=== PATIENT | female | born 1970 | race African-American/Black ===

== ENCOUNTER 2017-09-27 19:34 | Emergency (ER) | payer MEDICAID ==
[~2017-09-27] VITALS: Ht 167.6 cm; Wt 102.1 kg
--- NOTE | 2017-09-27 19:40 | NUR ---
TO MELIZA A/W RAFFI OSBORNE NOTED, PATIENT SMELLS OF FECES AND URINE.
[2017-09-27 19:44] VITALS: BP 160/82
--- NOTE | 2017-09-27 20:08 | NUR ---
BIB WHEELCHAIR TO ER BED 1
--- NOTE | 2017-09-27 20:10 | NUR ---
47/F BIBA W C/O LEFT LEG EDEMA AND PAIN. PT STATES SHE CANNOT WALK/BEAR WEIGHT ON LEG. PT IS TRANSIENT AND NORMALLY ON WHEELCHAIR. LEFT LEG NOTED EDEMATOUS WITH ERYTHEMA, SCALING DENIES SOB/CP, DENIES FEVER/CHILLS, N/V. PMH: HTN, DM
[2017-09-27] MEDS ORDERED: TRAM50TA1 PO (21:53)
[2017-09-27] MEDS ORDERED: ALBU0.0912 IH (21:53)
[2017-09-27 22:17] LABS: BASOPHILS # (AUTO) 0.3 K/uL (0.00-0.22); EOSINOPHILS # (AUTO) 0.1 K/uL (0-0.4); HEMATOCRIT 34.4 % (36-48); HEMOGLOBIN 10.6 g/dL (12.0-16.0); MEAN CORPUSCULAR HEMOGLOBIN 27 pg (27-31); MEAN CORPUSCULAR HGB CONC 31 g/dL (33-37); MEAN CORPUSCULAR VOLUME 88 fL (80-94); MONOCYTES # (AUTO) 0.4 K/uL (0.8-1.0); NEUTROPHILS # (AUTO) 1.4 K/uL (1.8-7.7); PLATELET COUNT (AUTO) 541 K/uL (140-450); RED BLOOD CELL COUNT(AUTO) 3.93 MIL/uL (4.20-5.40); RED CELL DISTRIBUTION WIDTH 16.7 % (11.6-13.7); WHITE BLOOD COUNT (AUTO) 4.2 K/uL (4.8-10.8)
[2017-09-27 22:42] LABS: CARBON DIOXIDE 29.5 mmol/L (21-32); CREATININE 0.5 mg/dL (0.6-1.3); POTASSIUM 3.5 mmol/L (3.5-5.1)
[2017-09-27 22:48] LABS: ALBUMIN 2.3 g/dL (3.4-5.0); TOTAL BILIRUBIN 0.3 mg/dL (0.0-1.0)
[2017-09-27 23:06] LABS: THYROID STIMULATING HORMONE 1.22 uIU/mL (0.34-3.74)
[2017-09-28 00:17] LABS: APPEARANCE,URINE HAZY (CLEAR); BILIRUBIN,URINE NEGATIVE (NEGATIVE); BLOOD, URINE 2+ (NEGATIVE); COLOR,URINE YELLOW (YELLOW); LEUKOCYTE ESTERASE ,URINE 2+ (NEGATIVE); NITRITE, URINE NEGATIVE (NEGATIVE); UGLUCOSE NEGATIVE (NEGATIVE)
--- NOTE | 2017-09-28 00:26 | NUR ---
Ultrasound at bedside.
[2017-09-28 00:42] LABS: RBC,URINE 11-20 (MOD) /HPF (0-5)
--- NOTE | 2017-09-28 01:00 | NUR ---
Patient appears to be resting comfortably in bed. Vital Signs within normal limits. Respirations even and unlabored.
[2017-09-28 03:20] VITALS: BP 127/82
--- NOTE | 2017-09-28 03:20 | NUR ---
Patient discharged with v/s stable. Written and verbal after care instructions given and explained. Patient alert, oriented and verbalized understanding of instructions. Wheel Chair Assisted to lobby. All questions addressed prior to discharge. ID band removed. Patient advised to follow up with PMD. Rx of augmentin given. Patient educated on indication of medication including possible reaction and side effects. Opportunity to ask questions provided and answered. Patient given written and verbal discharge instructions and verbalizes understanding. Given copies of tests performed during visit. Patient is awake, alert and oriented. Refuses offer of nursing home placement. Given list of available shelters in surrounding areas.
== END 2017-09-28 03:20 | disposition home or self-care (01) ==
LOC: MED 19:34
DX: J32.9 Chronic sinusitis, unspecified (principal); I89.0 Lymphedema, not elsewhere classified; N39.0 Urinary tract infection, site not specified; D53.9 Nutritional anemia, unspecified; I10 Essential (primary) hypertension; E11.9 Type 2 diabetes mellitus without complications
CPT/HCPCS: 36415; 70450; 71045; 80053; 81001; 83690; 83880; 84443; 84484; 85025; 87086; 93005; 93971; 99285; Q0092